=== PATIENT | female | born 1990 | race Two or more races ===

== ENCOUNTER 2024-05-17 01:26 | Inpatient (IN) | payer MEDICAID, SELFPAY ==
[2024-05-17] VITALS (18 sets, daily range): BP systolic 109–157; BP diastolic 70–110; PULSE 71–92; RESP 16–20; TEMP 36.3–36.9; O2SAT 98–99; BMI 38.4
--- NOTE | 2024-05-17 | PC.NURSE ---
CALLED OB, OB NURSE SAID SHE NEEDS TO BE CONFIRMED , THEY WANT BLOOD TEST AND ULTRASOUND.
--- NOTE | 2024-05-17 00:49 | XR_ITS ---
Examination: Complete OB ultrasound greater than 14 weeks Date and time of exam: May 17, 2024 0103 hrs. Indications: No care, leaking amniotic fluid beginning 3 days ago Findings: Viable intrauterine single fetus with single amniotic sac presentation cephalic spine maternal right Cardiac motion 135 BPM Placenta anterior grade 2 Umbilical cord insertion seen Amniotic fluid index 0.5 cm Cervix 4.7 cm Ovaries obscured by bowel gas. Composite estimated gestational age based on BPD, head circumference, abdominal circumference, femur length is 35 weeks 5 days Estimated weight 2595.8 g. Survey of intracranial anatomy, spinal anatomy, abdominal anatomy, four-chamber heart performed with no abnormalities identified. Impression: Viable intrauterine gestation cephalic presentation Estimated gestational age 35 weeks 5 days Amniotic fluid index 0.5 cm No placental abruption.
--- NOTE | 2024-05-17 01:00 | PD.EDADULT ---
ED General RME/HPI General Chief complaint: General Adult/Misc Complain Stated complaint: CONTRACTIONS Arrival date/time: 05/16/24 23:55 Limitations: no limitations RME / HPI RME / HPI narrative: Dr. Cespedes's Main ED Evaluation: 33yo female presents to the ED for a chief complaint of contractions x 2300. Patient states she's been leaking clear fluid for the last 3 days and started having abdominal cramping today. Patient states her LMP is 08/15/23. She reports she has not been seen by a PCP or OB. She denies taking any medications. Denies any alcohol or illicit drugs. No known allergies. Patient notes her last baby was born at 30 weeks stillborn. Related Data Home Medications ?Medication ?Instructions ?Recorded ?Confirmed No Known Home Medications 03/31/21 03/31/21 Allergies Allergy/AdvReac Type Severity Reaction Status Date / Time No Known Allergies Allergy Unverified 05/17/24 00:09 Review of Systems Review of Systems Systems Reviewed: All systems reviewed, normal except as documented Past Medical History Past Medical History NEUROLOGIC: Negative Neurological Disorders CARDIAC: Negative Cardiac Disorders or Congestive Heart Failure RESPIRATORY: Negative Chronic Obstructive Pulmonary Disease (COPD) GASTROINTESTINAL: Negative Gastrointestinal Disorders or Hepatitis GENITOURINARY: Negative Genitourinary Disorders or Renal Disease MUSCULOSKELETAL: Negative Musculoskeletal Disorders ENDOCRINE: Negative Endocrine Disorders, Diabetes Mellitus Type 1 or Diabetes Mellitus Type 2 HEMATOLOGIC: Negative Blood Disorders OTHER HISTORY: Negative Autoimmune Disease, Human Immunodeficiency Virus (HIV), Chicken Pox, Measles, Mumps, Rubella ([place] Measles), Pertussis or Clostridium Difficile Family History FAMILY HISTORY: Positive Family Cancer (BRAIN CANCER); Negative Family Psychiatric Problems, Family Respiratory Disorders, Family Cardiac Disorders, Family Gastrointestinal Problems, Family Surgery or Family Anesthesia Reaction Social History SMOKING STATUS: Former smoker ED Exam General Limitations: Present no limitations General appearance: Present alert, in no apparent distress and anxious Head Head exam: Present atraumatic Eye Eye exam: Present normal appearance, PERRL and EOMI ENT ENT exam: Present normal exam and mucous membranes moist Neck Neck exam: Present normal inspection, full ROM and trachea midline Chest Chest inspection: Present normal inspection and symmetric chest wall rise Respiratory Respiratory exam: Present normal lung sounds bilaterally; Absent accessory muscle use Cardiovascular Cardiovascular exam: Present regular rate, normal rhythm and normal heart sounds Abdominal Exam Abdominal exam: Present soft and other (gravid) Extremities Exam Extremities exam: Present normal inspection and full ROM; Absent pedal edema Back Exam Back exam: Present normal inspection and full ROM Neurological Exam Neurological exam: Present alert, oriented X3 and CN II-XII intact Psychiatric Psychiatric exam: Present normal affect and normal mood Skin Skin exam: Present warm, dry, intact and normal color Course Quality Measures none Orders Category Date Time Status US OB >= 14 weeks Fetus Stat Exams 05/17/24 00:49 Ordered Beta HCG,Quantitative Stat Lab 05/17/24 00:51 Results HCG,Qualitative Serum Stat Lab 05/17/24 00:51 Results Vital Signs Vital signs: Vital Signs Temperature 98.5 F 05/17/24 00:10 Pulse Rate 87 05/17/24 00:10 Respiratory Rate 18 05/17/24 00:10 Blood Pressure 157/99 H 05/17/24 00:10 Pulse Oximetry (%) 99 05/17/24 00:10 Oxygen Delivery Method Room Air 05/17/24 00:10 Pulse ox is 99% on room air, which is normal according to my interpretation. MDM Patient data External records reviewed:: [facility] previous records (Per chart review, patient has no previous ED visits to this facility.) Clinical information provided by:: patient Social determinants that could affect healthcare access:: none Patient has the following chronic illnesses:: none How is presenting disease/condition affected by chronic disease/condition?: no chronic disease Evaluation data The following diagnostics were reviewed and interpreted by me:: lab results and radiology exam(s) Lab and/or radiology exams considered but not ordered:: none Interpretation Summary: US at the bedside, which showed a normal head circumference, gestational age of ~35 weeks, minimal to no amniotic fluid, and a FHR of 135, according to my interpretation. Medications Medications considered but not ordered:: none Medication administrations:: see above, if any Consultations Consultation(s) initiated? (list below): No Diagnosis Differential Diagnosis ED Complaint MDM: labor, third trimester Most likely diagnosis given after review of the tests above:: Other DDx: other complications for third trimester , noncompliance with follow-up care Final Dx: see below Admission Indicated Admission indicated?: indicated Explain why admission is indicated or not indicated:: Charge nurse made aware of US interpretation and immediately called OB to send the patient upstairs. Admission Request Was there a request for admission?: Yes Admission Attestation Admission request attestation: Discussed case with [] from Hospitalist service regarding admission. Discussed patients ED course, exam findings, labs, and radiology results. The Hospitalist [agrees,declines] to accept the patient for admission. Disposition Plan Disposition Plan: Admit (to OB floor) Medical Decision Making Differential Diagnosis Differential Diagnosis: labor, third trimester Lab Data Labs: Lab Results 05/17/24 Range/Units 00:51 HCG, Qual Positive Discharge Plan Prescriptions/Referrals Prescriptions/Med Rec: No Action No Known Home Medications Referrals: No Primary/Family,Physician [Primary Care Provider] - Patient/Caregiver Discharge Instructions Print Language: [place]
[2024-05-17 01:20] LABS: HCG,Qualitative Serum Positive
[2024-05-17 01:40] LABS: Beta HCG,Quantitative 3727 mIU/mL (<5.0)
[2024-05-17] MEDS: OXYTOCIN in NS 20 units 20 UNIT/1,000 ML BAG 125 UNIT IV (02:00)
--- NOTE | 2024-05-17 02:05 | PD.LDHP ---
Documentation for date of: 05/17/24 OB Labor/Induct. HPI History of Present Illness History of present illness: 33-year-old -0-1-2 at 39 weeks 3 days, with no care was sent in from the emergency room in active labor. Patient went on to deliver precipitously. Patient reports methamphetamine use 1 week ago and she reports alcohol use 2 days ago. Patient reports rupture of membranes 3 days ago. No other history could be elicited at this time. Review of Systems Review of Systems Systems Reviewed: All systems reviewed, normal except as documented Meds Home Medications and Allergies Home Medications ?Medication ?Instructions ?Recorded ?Confirmed ?Type No Known Home Medications 03/31/21 03/31/21 History Allergies Allergy/AdvReac Type Severity Reaction Status Date / Time No Known Allergies Allergy Unverified 05/17/24 00:09 OB Exam Physical Exam Vital signs: Temp Pulse Resp BP Pulse Ox O2 Del Method 98.0 F 92 18 155/110 H 99 Room Air 05/17/24 00:23 05/17/24 00:23 05/17/24 00:23 05/17/24 00:23 05/17/24 00:23 05/17/24 00:23 Constitutional Constitutional: no acute distress Routine HEENT Exam Head: Present normocephalic and atraumatic Eye: Present EOMI and PERRL ENT: Present mucous membranes moist Routine Neck Exam Neck: Present supple and trachea midline Routine Cardiovascular Exam Cardiovascular: Present RRR Routine Abdominal Exam Abdominal: Present soft and normoactive bowel sounds Detailed Labor and Delivery Exam Dilation (cm): 10 Routine Extremities Exam Extremities: Present full ROM Routine Skin Exam Skin: Present intact, dry and warm Routine Neurological Exam Neurological: Present alert, oriented X3 and CN II-XII intact Routine Psychiatric Exam Psychiatric: Present normal affect and normal thought process OB Assessment & Plan Assessment and Plan (1) Precipitous delivery, delivered (current hospitalization): Status: Acute Assessment and plan: Admit to inpatient status Patient was status post delivery at the time of evaluation Placenta removed manually. Routine orders. All labs ordered. business and services instructor consult (2) Methamphetamine use: Status: Acute (3) Alcohol use affecting : Status: Acute
--- NOTE | 2024-05-17 02:09 | PD.LDDELS ---
Delivery Data (Hua) Delivery Data Delivered by: Cecile Vega
[2024-05-17 02:38] LABS: Basophils # (Auto) 0.1 Thou/mm3 (0.0-0.2); Basophils % (Auto) 0 % (0-2.5); Eosinophils # (Auto) 0.3 Thou/mm3 (0.0-0.5); Eosinophils % (Auto) 2 % (0-10); Hematocrit 36.4 % (36.0-46.0); Hemoglobin 12.6 g/dL (12.0-16.0); Immature Granulocytes % (Auto) 1 % (0-0); Immature Granulocytes Auto 0.11 Thou/mm3 (0.00-0.00); Lymphocytes # (Auto) 2.9 Thou/mm3 (1.0-4.8); Lymphocytes % (Auto) 18 % (10-50); Mean Corpuscular HGB Conc 34.6 g/dl (31.0-37.0); Mean Corpuscular Hemoglobin 30.5 pg (25.0-35.0); Mean Corpuscular Volume 88 fL (80-100); Monocytes # (Auto) 1.1 Thou/mm3 (0.0-0.8); Monocytes % (Auto) 7 % (0-12); Neutrophils # (Auto) 12.1 Thou/mm3 (1.8-7.7); Neutrophils % (Auto) 73 % (37-80); Nucleated Red Blood Cell % 0 /100 WBC (0); Platelet Count 395 Thou/mm3 (140-440); RDW Standard Deviation 43.1 fL (36.4-46.3); Red Blood Count 4.13 Miln/mm3 (4.00-5.20); White Blood Count 16.5 Thou/mm3 (3.6-11.0)
[2024-05-17] MEDS: ceFAZolin/D5W 2 GM IV 2 GM/100 ML BAG IV ×4 (02:45→22:15)
[2024-05-17 03:00] LABS: Amphetamine/Metham Scrn,Ur OB Positive (Negative); Benzoylecgonine Screen, Ur OB Negative (Negative); Opiate Screen,Urine OB Negative (Negative); THC Screen,Urine OB Negative (Negative)
[2024-05-17] MEDS: TRANEXAMIC ACID 1,000 MG IVPB 1,000 MG/100 ML BAG 200 MG IV (03:00)
[2024-05-17 03:01] LABS: Amphetamines/Metham U Confirm* See Sep Rpt
[2024-05-17 03:24] LABS: Hepatitis B Surface Antigen Non Reactive (Non React); Rubella, IgG Antibody Equivocal
[2024-05-17] MEDS: NIFEdipine XL 30 MG TABCR PO (03:34)
[2024-05-17] MEDS: IBUPROFEN TAB 400 MG TABLET 800 MG PO ×2 (03:36→16:22)
--- NOTE | 2024-05-17 03:38 | PRELIM_ITS ---
Obstetric ultrasound. May 17, 2024 0103 hours Clinical history: Contractions.Findings:There is a gravid uterus with a live fetus in cephalic presentation of mean gestational age 35 weeks and 5 days . cardiac activity is present at a heart rate of 135 beats per minute. The placenta is anterior in location, maturity grade 2. There is no evidence of placenta previa or retroplacental hemorrhage. Amniotic fluid is negligible with a single pocket of 0.5 cm. Estimated weight is 2595 grams+/ - 384 grams. Both ovaries are not visualized.The cervical length measures 4.7 cm.Impression:Gravid ut erus with a single live fetus in cephalic presentation of mean gestational age 35 weeks 5 days.Amniot ic fluid is negligible with a single pocket of 0.5 cm. Recommend clinical correlation and follow-up. Discussion Details: Results were verbally communicated to Nilsa Marc RN at 06:05 AM ET. A call b ack number is provided to facilitate Physician to Physician communication Report Electronically Sign ed By: Fredy Palmer 05/17/2024 3:37:23 AM [EST]
[2024-05-17 03:54] LABS: Syphilis Reactive (Nonreactive)
[2024-05-17 03:54] LABS: MHATP/TP-PA* See Sep Rpt
[2024-05-17 05:21] LABS: HIV (1&2) Antibody Rapid Non-Reactive
[2024-05-17 08:07] LABS: Basophils # (Auto) 0.1 Thou/mm3 (0.0-0.2); Basophils % (Auto) 0 % (0-2.5); Eosinophils # (Auto) 0.2 Thou/mm3 (0.0-0.5); Eosinophils % (Auto) 1 % (0-10); Hematocrit 33.4 % (36.0-46.0); Hemoglobin 11.7 g/dL (12.0-16.0); Immature Granulocytes % (Auto) 1 % (0-0); Immature Granulocytes Auto 0.08 Thou/mm3 (0.00-0.00); Lymphocytes % (Auto) 13 % (10-50); Mean Corpuscular Hemoglobin 31.5 pg (25.0-35.0); Mean Corpuscular Volume 90 fL (80-100); Monocytes % (Auto) 6 % (0-12); Neutrophils # (Auto) 12.6 Thou/mm3 (1.8-7.7); Neutrophils % (Auto) 80 % (37-80); Nucleated Red Blood Cell % 0 /100 WBC (0); Platelet Count 307 Thou/mm3 (140-440); RDW Standard Deviation 43.4 fL (36.4-46.3); Red Blood Count 3.72 Miln/mm3 (4.00-5.20); White Blood Count 15.9 Thou/mm3 (3.6-11.0)
[2024-05-17 08:45] LABS: Alanine Aminotransferase 9 U/L (10-49); Albumin, Serum 3.4 gm/dL (3.5-5.0); Albumin/Globulin Ratio 1.5 (1.2-2.2); Alcohol, Blood Medical < 3.0 mg/dL (0-10.0); Alkaline Phosphatase 150 U/L (46-116); Anion Gap 7 (7-16); Aspartate Amino Transferase 18 U/L (0-34); BUN/Creatinine Ratio 10 Ratio (12-20); Bilirubin,Total 0.3 mg/dL (0.3-1.2); Blood Urea Nitrogen < 5 mg/dL (9-23); Calcium 8.1 mg/dL (8.3-10.6); Calcium (Corrected) 8.6 mg/dL (8.5-10.1); Carbon Dioxide 20.8 mMol/L (20.0-31.0); Chloride 107 mMol/L (98-107); Creatinine (Component) 0.5 mg/dL (0.6-1.3); Globulin 2.3 gm/dL (2.3-3.5); Glucose 91 mg/dL (74-106); LDH (Lactate Dehydrogenase) 235 U/L (120-246); Osmolality,Calculated 267 (275-295); Potassium 3.4 mMol/L (3.4-5.1); Sodium 135 mMol/L (136-145); Total Protein 5.7 gm/dL (5.7-8.2); eGFR > 60 See Note
[2024-05-17 08:54] LABS: Prothrombin Time 10.8 Seconds (9.0-12.2)
[2024-05-17] MEDS: DOCUSATE SOD 100 MG CAPSULE PO (09:19)
[2024-05-17 09:37] LABS: Collection Type, Urine Clean Catch; Squamous Epithelial Cell,Urine 0 /hpf (0-5)
[2024-05-17 10:19] LABS: Fibrinogen 416 mg/dL (175-375)
[2024-05-17 10:34] LABS: RBC,Urine 9368 /hpf (0-3); WBC,Urine 38 /hpf (0-5)
[2024-05-17 10:35] LABS: Bilirubin,Urine Negative (Negative); Blood,Urine 3+ (Negative); Color,Urine Dark-Brown (Lt Yel-Yel); Glucose, Urine Negative (Negative); Ketones,Urine Trace (Negative); Leukocyte Esterase,Urine Positive (Negative); Nitrite,Urine Positive (Negative); PH,Urine 6.5 (5.0-7.0); Protein,Urine 2+ (Neg - Trace); Specific Gravity,Urine 1.017 (1.001-1.035); Urobilinogen,Urine Negative mg/dL (0.0-1.0)
[2024-05-17 10:38] LABS: Clarity,Urine Bloody (Clear/Hazy)
[2024-05-17 12:21] LABS: Chlamydia trachomatis PCR Positive (Not Detect); Neisseria Gonorrhoeae DNA PCR Negative (Not Detect); Trichomonas Negative (Negative)
--- NOTE | 2024-05-17 15:00 | PC.SS ---
MOTORCYCLE SUBASSEMBLY REPAIRER conducted bedside contact with the patient to address nursing referral indicating patient?s toxicology screen was positive for methamphetamine. ?s toxicology screen positive pending. MOTORCYCLE SUBASSEMBLY REPAIRER introduced self, role and basis of bedside contact. 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 Patient stated that previous resulted in stillborn delivery in 2021. Current trigger for methamphetamine use. In addition, patient reported that April 2024 was 3rd year anniversary of adult daughterMelanie?s passing. Patient shared that past events led to patient utilizing methamphetamine. Patient reports that use of methamphetamine began in 2020 following passing of adult daughter, Melanie. Patient informed MOTORCYCLE SUBASSEMBLY REPAIRER plan to cease use of methamphetamine. Patient has two children ages 11 and 7 who are no longer in custody of the patient. Patient reports that children reside with their father. Patient stated that CWS was not involved with patient relinquishing custody to children?s father. Patient denies history of CWS involvement. Patient resides at home with her cousin, Jefferson Tavares. Patient is not employed. Patient reports alignment with WIC and SNAP. Patient is not receiving TANF benefits. Patient declined to identify FOB. Patient reports that FOB will not be involved with rearing of the . Patient denies history of domestic violence. Patient denies history of mental health. Patient denies possession of mental health diagnosis or prescription of psychotropic medication. Patient confirmed no accessing care during . Patient did not disclose barrier to accessing OB services. Infant was delivered naturally. Patient reports that she will have access to appropriate equipment and supplies. Patient reports ability to obtain car seat. Patient reports that family will provide transportation on behalf of the patient. Patient identified her sister as supportive. MOTORCYCLE SUBASSEMBLY REPAIRER informed patient that report to CWS would be generated. High risk referral to also be submitted. MOTORCYCLE SUBASSEMBLY REPAIRER updated bedside nurse.
[2024-05-17] MEDS: AZITHROMYCIN 250 MG TABLET 1000 MG PO (16:23)
--- NOTE | 2024-05-17 16:27 | PC.SS ---
Addendum entered and electronically signed by DOMONIQUE Petty 05/18/24 08:52: Written report submitted to CWS via e-mail. Copy of report filed in patient's chart. Original Note: FACILITY MAINTENANCE TECHNICIAN conduced phone contact with CWS staff, Alecia Wallace to generate report. Report based on the patient's toxicology report positive for methamphetamine. toxicology report pending. CWS informed FACILITY MAINTENANCE TECHNICIAN that if CWS staff does not respond within 2 hours (approximately 06:30 pm) then CWS will follow up with the patient within 10 days of today's date. Written report submittal pending. FACILITY MAINTENANCE TECHNICIAN notified bedside nurse.
[2024-05-18 04:27] VITALS: BP 109/70; PULSE 82; RESP 18; TEMP 36.5; O2SAT 98
[2024-05-18 05:58] LABS: Basophils # (Auto) 0.1 Thou/mm3 (0.0-0.2); Basophils % (Auto) 1 % (0-2.5); Eosinophils # (Auto) 0.4 Thou/mm3 (0.0-0.5); Eosinophils % (Auto) 4 % (0-10); Hematocrit 35.5 % (36.0-46.0); Hemoglobin 12.2 g/dL (12.0-16.0); Immature Granulocytes % (Auto) 1 % (0-0); Immature Granulocytes Auto 0.11 Thou/mm3 (0.00-0.00); Lymphocytes # (Auto) 2.3 Thou/mm3 (1.0-4.8); Lymphocytes % (Auto) 23 % (10-50); Mean Corpuscular HGB Conc 34.4 g/dl (31.0-37.0); Mean Corpuscular Volume 90 fL (80-100); Monocytes # (Auto) 0.7 Thou/mm3 (0.0-0.8); Monocytes % (Auto) 7 % (0-12); Neutrophils # (Auto) 6.5 Thou/mm3 (1.8-7.7); Neutrophils % (Auto) 65 % (37-80); Nucleated Red Blood Cell % 0 /100 WBC (0); Platelet Count 352 Thou/mm3 (140-440); RDW Standard Deviation 43.6 fL (36.4-46.3); Red Blood Count 3.94 Miln/mm3 (4.00-5.20)
--- NOTE | 2024-05-18 07:32 | PD.LDPPPRG ---
Subjective Subjective Interval history: Patient seen at the bedside. Afebrile, tolerating p.o., ambulating, voiding Exam Vital Signs Temp Pulse Resp BP Pulse Ox O2 Del Method 97.7 F 82 18 109/70 98 Room Air 05/18/24 04:27 05/18/24 04:27 05/18/24 04:27 05/18/24 04:27 05/18/24 04:27 05/18/24 04:27 Routine Abdominal Exam Comments: Soft, nontender. Uterus firm, below the umbilicus Routine Exam Comments: Lochia similar to menses Routine Extremities Exam Comments: Homans' sign negative Objective Labs 05/18/24 04:20 05/17/24 07:28 Labs: Laboratory Results - last 24 hr 05/17/24 05/17/24 05/17/24 01:27 07:28 09:10 WBC 15.9 H RBC 3.72 L Hgb 11.7 L Hct 33.4 L MCV 90 MCH 31.5 MCHC 35.0 RDW Std Deviation 43.4 Plt Count 307 D Neut % (Auto) 80 Lymph % (Auto) 13 [place] % (Auto) 6 Eos % (Auto) 1 Baso % (Auto) 0 Neut # (Auto) 12.6 H Lymph # (Auto) 2.0 [place] # (Auto) 1.0 H Eos # (Auto) 0.2 Baso # (Auto) 0.1 Immature Gran # (Auto) 0.08 H Absolute Nucleated RBC 0.00 Immature Gran % 1 H Nucleated RBC % 0 PT 10.8 INR 1.0 APTT 27.0 Fibrinogen 416 H Sodium 135 L Potassium 3.4 Chloride 107 Carbon Dioxide 20.8 Anion Gap 7 BUN < 5 L Creatinine 0.5 L Estim Creat Clear Calc 169.0 eGFR > 60 BUN/Creatinine Ratio 10 L Glucose 91 Calculated Osmolality 267 L Uric Acid 4.0 Calcium 8.1 L Corrected Calcium 8.6 Total Bilirubin 0.3 AST 18 ALT 9 L Alkaline Phosphatase 150 H Lactate Dehydrogenase 235 Total Protein 5.7 Albumin 3.4 L Globulin 2.3 Albumin/Globulin Ratio 1.5 Ur Collection Type Clean Catch Urine Color Dark-Brown Urine Clarity Bloody A Urine pH 6.5 Ur Specific [place] 1.017 Urine Protein 2+ A Urine Glucose (UA) Negative Urine Ketones Trace Urine Blood 3+ A Urine Nitrite Positive Urine Bilirubin Negative Urine Urobilinogen (Auto) Negative Ur Leukocyte Esterase Positive Urine RBC 9368 H Urine WBC 38 H Ur Squamous Epith Cells 0 Urine Bacteria None Ethyl Alcohol < 3.0 T.pallidum Ab (MHA) See Sep Rpt Chlam trachomat DNA PCR Positive N.gonorrhoeae DNA (PCR) Negative Trichomonas DNA Probe Negative 05/18/24 04:20 WBC 10.0 D RBC 3.94 L Hgb 12.2 Hct 35.5 L MCV 90 MCH 31.0 MCHC 34.4 RDW Std Deviation 43.6 Plt Count 352 D Neut % (Auto) 65 Lymph % (Auto) 23 [place] % (Auto) 7 Eos % (Auto) 4 Baso % (Auto) 1 Neut # (Auto) 6.5 Lymph # (Auto) 2.3 [place] # (Auto) 0.7 Eos # (Auto) 0.4 Baso # (Auto) 0.1 Immature Gran # (Auto) 0.11 H Absolute Nucleated RBC 0.00 Immature Gran % 1 H Nucleated RBC % 0 PT INR APTT Fibrinogen Sodium Potassium Chloride Carbon Dioxide Anion Gap BUN Creatinine Estim Creat Clear Calc eGFR BUN/Creatinine Ratio Glucose Calculated Osmolality Uric Acid Calcium Corrected Calcium Total Bilirubin AST ALT Alkaline Phosphatase Lactate Dehydrogenase Total Protein Albumin Globulin Albumin/Globulin Ratio Ur Collection Type Urine Color Urine Clarity Urine pH Ur Specific [place] Urine Protein Urine Glucose (UA) Urine Ketones Urine Blood Urine Nitrite Urine Bilirubin Urine Urobilinogen (Auto) Ur Leukocyte Esterase Urine RBC Urine WBC Ur Squamous Epith Cells Urine Bacteria Ethyl Alcohol T.pallidum Ab (MHA) Chlam trachomat DNA PCR N.gonorrhoeae DNA (PCR) Trichomonas DNA Probe Assessment & Plan Problem List (1) Precipitous delivery, delivered (current hospitalization): Status: Acute (2) Methamphetamine use: Status: Acute (3) Alcohol use affecting : Status: Acute Assessment Comment Assessment comment: 33-year-old status post . day 1 No care. Chlamydia positive status post azithromycin. RPR positive will give penicillin x 1 now and continue management Time Spent With Patient Time: Total time spent is greater than 50% in coordination of care (as documented) at patient's floor/unit and/or counseling patient:
--- NOTE | 2024-05-18 07:34 | ESDS_ITS ---
DS: Providers Provider Date of admission: 05/17/24 01:27 Primary care physician: Physician No Primary/Family Admitting Provider: David Watson MD Attending Provider on Admission: Agusto Self MD Consults: 05/17/24 03:23 Referral Routine Comment: Attending Provider on DC: Agusto Self MD Discharging Provider: Agusto Self MD DS: Diagnosis Problem List Completed Was Problem List Reviewed/Reconciled?: Yes Summary/Hosp Course Brief History: 33-year-old who came in active labor with no care. Labs notable for positive chlamydia status post Zithromycin and RPR positive. Her course was unremarkable she received penicillin x 1 and she was discharged home on day 1 Peripartum Data Delivery Method: Normal Vaginal Delivery Time Spent with Patient Time attestation: Total time spent providing and/or coordinating discharge services: Exam Vital Signs Temp Pulse Resp BP Pulse Ox O2 Del Method 97.7 F 82 18 109/70 98 Room Air 05/18/24 04:27 05/18/24 04:27 05/18/24 04:27 05/18/24 04:27 05/18/24 04:27 05/18/24 04:27 Discharge Plan Plan Patient Disposition: HOME (Self Care) Prescriptions/Referrals Prescriptions/Med Rec: New ibuprofen 400 mg Tablet 800 mg PO Q8HR 7 Days Qty: 21 0RF Referrals: David Watson MD [Physician] - (1week) No Primary/Family,Physician [Primary Care Provider] - Patient/Caregiver Discharge Instructions Education Materials: After a Vaginal Print Language: Maldivian Stand Alone Forms: Deirdre Award Info., Patient Portal Info Letter Discharge Order Discharge Orders: Discharge (Routine); Ordered 05/18/24 Ordered By: Agusto Self Planned Discharge Date 05/18/24
[2024-05-18 08:04] VITALS: BP 129/83; PULSE 80; RESP 18; TEMP 36.5; O2SAT 98
[2024-05-18] MEDS: PEN G BENZ (Bicillin LA) 2.4 MMU/4 ML SYRG IM (08:44)
[2024-05-18] MEDS: DOCUSATE SOD 100 MG CAPSULE PO (08:49)
[2024-05-18 09:16] VITALS: BP 127/86; PULSE 83
--- NOTE | 2024-05-18 10:17 | PC.SS ---
PROGRAM MANAGEMENT PROFESSIONAL received phone call from S staff, Bee ; that CWS in route to conduct bedside contact with the patient. Discharge orders submitted on the patients behalf. PROGRAM MANAGEMENT PROFESSIONAL informed patient that CWS was in route to meet with patient. PROGRAM MANAGEMENT PROFESSIONAL informed patient of need to be present upon CWS arrival. Patient acknowledged need to be present upon CWS arrival. PROGRAM MANAGEMENT PROFESSIONAL updated bedside nurse of CWS contact.
--- NOTE | 2024-05-18 12:28 | PC.SS ---
Patient's updated home phone number: [phone].
--- NOTE | 2024-05-18 13:53 | PC.SS ---
TIME BUYER conducted contact with [facility] staff, Bee Sargent . TIME BUYER notified by S staff that warrant for halfway will be submitted on the . S to have warrant completed early next week and will accompany law enforcement to serve warrant. currently in NICU will continue with antibiotic regimen for approximately 9-14 days. will not be released to mother. S to be notified by clinical social work aide once infant is cleared for medical discharge. Charge nurse, bedside nurse and NICU nurse updated. Copy of [facility] identification contact number placed in both mother?s chart and infant?s chart.
== END 2024-05-18 13:33 | disposition home or self-care (01) | DRG 560 ==
LOC: S4SX 02:18 → S4NX 04:32
PROVIDERS: Emergency Medicine; Admitting Provider Obstetrics & Gynecology; Visit Provider Obstetrics & Gynecology
DX: O62.3 Precipitate labor (principal); Z3A.39 39 weeks gestation of pregnancy; F15.90 Other stimulant use, unspecified, uncomplicated; O99.324 Drug use complicating childbirth; O98.32 Other infections with a predominantly sexual mode of transmission complicating childbirth; A74.9 Chlamydial infection, unspecified; Z37.0 Single live birth
CPT/HCPCS: 36415; 59409; 76805; 80053; 80307; 80320; 81001; 83615; 84550; 84702; 84703; 85025; 85384; 85610; 85730; 86703; 86762; 86780; 86850; 86900; 86901; 87340; 87491; 87591; 87661; J0561; J0689; J2590; J3490; A9270; G0480; J0690